=== PATIENT | female | born 1955 | race Two or more races ===

== ENCOUNTER 2024-12-28 07:00 | Day surgery (SDC) | payer MEDICARE, SELFPAY ==
[2024-12-27 07:46] VITALS: BMI 31.4
--- NOTE | 2024-12-27 07:59 | EKG_ITS ---
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
[2024-12-27 08:27] LABS: Basophils % (Auto) 1 % (0-2.5); Eosinophils # (Auto) 0.2 Thou/mm3 (0.0-0.5); Eosinophils % (Auto) 2 % (0-10); Hematocrit 37.1 % (36.0-46.0); Immature Granulocytes % (Auto) 0 % (0-0); Immature Granulocytes Auto 0.02 Thou/mm3 (0.00-0.00); Lymphocytes # (Auto) 2.9 Thou/mm3 (1.0-4.8); Lymphocytes % (Auto) 37 % (10-50); Mean Corpuscular Volume 86 fL (80-100); Monocytes # (Auto) 0.5 Thou/mm3 (0.0-0.8); Monocytes % (Auto) 6 % (0-12); Neutrophils # (Auto) 4.2 Thou/mm3 (1.8-7.7); Neutrophils % (Auto) 54 % (37-80); Nucleated Red Blood Cell % 0 /100 WBC (0); Platelet Count 218 Thou/mm3 (140-440); RDW Standard Deviation 41.9 fL (36.4-46.3); Red Blood Count 4.33 Miln/mm3 (4.00-5.20); White Blood Count 7.8 Thou/mm3 (3.6-11.0)
[2024-12-27 08:46] LABS: Alanine Aminotransferase 19 U/L (10-49); Albumin, Serum 4.7 gm/dL (3.4-4.8); Albumin/Globulin Ratio 1.9 (1.2-2.2); Alkaline Phosphatase 70 U/L (46-116); Anion Gap 7 (7-16); Aspartate Amino Transferase 18 U/L (0-34); BUN/Creatinine Ratio 27 Ratio (12-20); Bilirubin,Total 0.6 mg/dL (0.3-1.2); Blood Urea Nitrogen 24 mg/dL (9-23); Calcium 9.7 mg/dL (8.3-10.6); Calcium (Corrected) 9.7 mg/dL (8.5-10.1); Carbon Dioxide 27.8 mMol/L (20.0-31.0); Chloride 108 mMol/L (98-107); Creatinine (Component) 0.9 mg/dL (0.6-1.3); Globulin 2.5 gm/dL (2.3-3.5); Glucose 89 mg/dL (74-106); Osmolality,Calculated 287 (275-295); Potassium 3.8 mMol/L (3.4-5.1); Sodium 143 mMol/L (136-145); Total Protein 7.2 gm/dL (5.7-8.2); eGFR > 60 See Note
[2024-12-27 09:27] LABS: Hepatitis A Antibody IgM Non Reactive (Non React); Hepatitis B Core Antibody IgM Non Reactive (Non React); Hepatitis B Surface Antigen Non Reactive (Non React); Hepatitis C Antibody Non Reactive (Non React)
[2024-12-27 16:41] LABS: HIV (1&2) Antibody Rapid Non-Reactive
[2024-12-28] VITALS (8 sets, daily range): BP systolic 139–168; BP diastolic 65–102; PULSE 65–80; RESP 12–20; TEMP 36.6–36.8; O2SAT 96–98; BMI 32.6
--- NOTE | 2024-12-28 07:30 | CHAP ---
Visited briefly with patient giving words of encouragement and prayer.
--- NOTE | 2024-12-28 09:55 | SUR.PHASEI ---
0933 Patient arrived to recovery resting comfortably in [facility], resting with her eye close, will arouse to speak with staff, breathing unlabored, vital signs stable, denies pain, dressing intact to vaginal area; peripad, no bleeding noted, lung sounds clear upon auscultation, bilateral radial pulses present when palpated, report received from Dr. Salvador and Tommy HARO
[2024-12-28] MEDS: ACETAMINOPHEN 500 MG TABLET 1000 MG PO (10:29)
--- NOTE | 2024-12-28 10:48 | SUR.PHASEII ---
1048 Patient meets discharge criteria from recovery, awake and alert, breathing unlabored, vital signs stable, per patient her pain is tolerable, dressing intact; no bleeding noted, patient drinking water; tolerating well, denies nausea, patient assisted with dressing into her clothing by her daughter, discharge instructions given to patient and patients daughter with teach-back approach, both receiptive of instructions, patients daughter signed discharge instructions. Patient given all her belongings prior to discharge, transported via wheelchair and left in a private vehicle.
--- NOTE | 2024-12-31 10:25 | ESOP_ITS ---
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 The potential benefits and risks of the procedure, the likelihood of success, and the problems related to recuperation have been discussed with patient who agrees to proceed. The possible results of nontreatment and significant alternatives to the proposed procedure have also been explained, along with the risks and benefits of the alternatives. Risks and benefits of chosen anesthetic/sedation and possible use of blood/blood products (if appropriate) were discussed.The patient was identified as Johny Fleming and the procedure verified. A time out was held reviewing the patient identifiers, procedure planned and allergies. At this point the procedure was begun. The patient was positioned and prepped in routine fashion in the dorsal lithotomy position using yellowfin stirups. On examination under anesthesia,the uterus was retroverted to a normal size.Bladder was drained by catheter. A weighted speculum was then placed into the patient's posterior vagina. A ruperto was used to expose the anterior lip of the cervix which was then grasped by a single tooth tenaculum.The cervix was then very easily dilated to a size 6 Hegar dilator. The hysteroscope was then placed under direct visualization. Warm lactated Ringer's was used as a distention medium. Initial view was occluded by a large pedunculated polyp covering the internal os and on tracing the stalk it was attached to the fundus. Using the myosure reach device, the polyp was excised with multiple rotatory movements of myosure blade, until the polyp was removed completely.Now bilateral os was visible . Pictures were taken. Hysteroscope was removed and we proceeded with the D&C. Endometrial curettings were sent for pathologyy. There was minimal bleeding noted and tenaculum was removed. Hemostasis was acheived with a ringed forcep on anterior cervix. Estimated blood loss (ml): 10 Complications: none Surgical staff Operation Date: 12/28/24 09:00 Case Staff Anesthesiologist: Neftaly Salvador Diagnosis Problem List Completed Was Problem List Reviewed/Reconciled?: Yes
== END 2024-12-28 10:48 | disposition home or self-care (01) ==
PROVIDERS: Anesthesiology; PCP Family Medicine; Referring Provider Student in an Organized Health Care Education/Training Program; Visit Provider Student in an Organized Health Care Education/Training Program
PROC: 0UJD8ZZ Inspection of Uterus and Cervix, Via Natural or Artificial Opening Endoscopic (ICD-10-PCS; CPT 58555; principal; 2024-12-28 08:45)
DX: N84.0 Polyp of corpus uteri (principal); Z01.810 Encounter for preprocedural cardiovascular examination
CPT/HCPCS: 58558; 36415; 80053; 80074; 85025; 86703; 86850; 86900; 86901; 93005; A4217; A4649; J0690; J1100; J2704; J2765; J3010; J3490; A9270